=== PATIENT | female | born 1960 | race Caucasian/White ===

== ENCOUNTER 2024-06-16 09:54 | Outpatient (REF) | payer OTHER, MEDICARE, SELFPAY ==
[2024-06-16 11:27] LABS: Vitamin B12 1167 pg/mL (200-900)
== END 2024-06-16 09:55 | disposition home or self-care (01) ==
LOC: HO.LAB 09:54
PROVIDERS: PCP Internal Medicine; Visit Provider Psychiatry & Neurology Neurology
DX: G31.84 Mild cognitive impairment of uncertain or unknown etiology (principal)
CPT/HCPCS: 36415; 82607